=== PATIENT | female | born 1960 | race African-American/Black ===

== ENCOUNTER 2022-07-17 16:31 | Observation (INO) | payer OTHER ==
[2022-07-17 16:39] VITALS: BMI 39.0
[2022-07-17] MEDS ORDERED: ACETAMINOPHEN 325 MG TABLET (FP) PO ONE (17:13)
[2022-07-17] MEDS ORDERED: ACETAMINOPHEN 325 MG TABLET (FP) ONE (17:59)
[2022-07-17 18:29] LABS: VENOUS BASE EXCESS 4.9 mmol/L (-2-2); VENOUS O2 SATURATION 72.3 % (70-80); VENOUS PCO2 45.7 mmHg (38-52); VENOUS PH 7.434 (7.310-7.410)
[2022-07-17 18:30] LABS: BASO % 0.4 % (0-2.0); EOS % 0.1 % (0-4.5); HEMATOCRIT 36.1 % (32.4-45.2); HEMOGLOBIN 11.7 GM/dL (10.7-15.3); LYMPH % 31.1 % (8-40); MCH 26.4 pg (25.7-33.7); MCHC 32.5 g/dl (32.0-36.0); MEAN CELL VOLUME 81.1 fl (80-96); MEAN PLT VOLUME 7.6 fl (7.5-11.1); MONO % 12.6 % (3.8-10.2); NEUT % 55.8 % (42.8-82.8); PLATELET COUNT 402 10^3/uL (134-434); RBC 4.45 M/mm3 (3.60-5.2); RDW 15.6 % (11.6-15.6); WHITE BLOOD COUNT 6.6 K/mm3 (4.0-10.0)
[2022-07-17 18:37] LABS: INR 1.06 (0.83-1.09); PROTHROMBIN TIME (PATIENT) 12.3 SEC (9.7-13.0)
[2022-07-17 18:40] LABS: ACTIVATED PTT 32.2 SECONDS (25.2-36.5)
[2022-07-17 18:47] LABS: POTASSIUM 3.5 mmol/L (3.5-5.1)
[2022-07-17 18:51] LABS: ALBUMIN 3.4 g/dl (3.4-5.0); BLOOD UREA NITROGEN 15.7 mg/dL (7-18); CALCIUM 8.9 mg/dL (8.5-10.1); MAGNESIUM 2.2 mg/dL (1.8-2.4)
[2022-07-17 18:54] LABS: CREATININE 0.9 mg/dL (0.55-1.3)
[2022-07-17 18:56] LABS: BILIRUBIN,TOTAL 0.4 mg/dL (0.2-1); TOT PROT 7.7 g/dl (6.4-8.2)
[2022-07-17 18:59] LABS: N-TERMINAL BNP 33.5 pg/ml (5-125)
[2022-07-17] MEDS ORDERED: DEXAMETHASONE SOD PHOSPHATE 20 MG/5 ML VIAL IVPB ONE (21:26)
[2022-07-17] MEDS ORDERED: DEXAMETHASONE SOD PHOSPHATE 4 MG/1 ML VIAL ONE (22:02)
[2022-07-17] MEDS ORDERED: BENZONATATE 200 MG CAPSULE PO ONE (23:21)
[2022-07-18] MEDS ORDERED: ALBUTEROL SO4 HFA INHALER IH PRN (01:32)
[2022-07-18] MEDS ORDERED: NITROGLYCERIN SUBLINGUAL 1/150 0.4 MG TAB SL PRN (01:32)
[2022-07-18] MEDS: BUDESONIDE/FORMETEROL FUMARATE 80/4.5 mcg INHALER IH SCH ×2 (05:15→09:38)
[2022-07-18 08:20] LABS: HEMATOCRIT 36.1 % (32.4-45.2); HEMOGLOBIN 11.7 GM/dL (10.7-15.3); MCH 26.8 pg (25.7-33.7); MCHC 32.5 g/dl (32.0-36.0); MEAN CELL VOLUME 82.3 fl (80-96); MEAN PLT VOLUME 8.2 fl (7.5-11.1); PLATELET COUNT 418 10^3/uL (134-434); RBC 4.39 M/mm3 (3.60-5.2); RDW 15.9 % (11.6-15.6); WHITE BLOOD COUNT 6.4 K/mm3 (4.0-10.0)
[2022-07-18 08:38] LABS: POTASSIUM 3.7 mmol/L (3.5-5.1)
[2022-07-18 08:42] LABS: ALBUMIN 3.4 g/dl (3.4-5.0)
[2022-07-18 08:43] LABS: BLOOD UREA NITROGEN 18.6 mg/dL (7-18); CALCIUM 9.5 mg/dL (8.5-10.1); MAGNESIUM 2.3 mg/dL (1.8-2.4)
[2022-07-18 08:45] LABS: CREATININE 0.9 mg/dL (0.55-1.3); PHOSPHOROUS 3.4 mg/dL (2.5-4.9)
[2022-07-18 08:47] LABS: BILIRUBIN,TOTAL 0.4 mg/dL (0.2-1); TOT PROT 7.9 g/dl (6.4-8.2)
[2022-07-18] MEDS ORDERED: LISINOPRIL 20 MG TABLET PO SCH (10:00)
[2022-07-18] MEDS ORDERED: ESCITALOPRAM OXALATE 10 MG TABLET PO SCH (10:00)
[2022-07-18] MEDS ORDERED: ENOXAPARIN NA (PORCINE) 30 MG/0.3 ML DISP.SYRIN SQ SCH (10:00)
[2022-07-18] MEDS ORDERED: PATIENT'S OWN MEDICATION (NON-FORMULARY) (Lisinopril/Hydrochlorothiazide [Lisinopril-Hctz PO SCH (10:00)
[2022-07-18] MEDS ORDERED: HYDROCHLOROTHIAZIDE 25 MG TABLET (FP) PO SCH (10:00)
[2022-07-18] MEDS ORDERED: ENOXAPARIN NA (PORCINE) 40 MG/0.4 ML DISP.SYRIN SQ SCH (10:00)
[2022-07-18] MEDS ORDERED: TIOTROPIUM BROMIDE 2.5 MCG (SPIRIVA) RESPIMAT INHALER IH SCH (10:00)
[2022-07-18] MEDS ORDERED: ASPIRIN COATED 81 MG TABLET.EC PO SCH (10:00)
[2022-07-18] MEDS ORDERED: CLOPIDOGREL BISULFATE 75 MG TABLET (FP) PO SCH (10:00)
[2022-07-18] MEDS ORDERED: ISOSORBIDE MONONITRATE 30 MG TAB.SR.24H (FP) PO SCH (10:00)
[2022-07-18 10:46] VITALS: TEMP 98.4
[2022-07-18 15:01] VITALS: BP 149/78; PULSE 70; RESP 18
[2022-07-18] MEDS ORDERED: ATORVASTATIN CA 40 MG TABLET (FP) PO SCH (22:00)
== END 2022-07-18 16:06 | disposition home or self-care (01) ==
LOC: JER 16:31 → UNDOADMOB 19:12 → JERBED 19:12 → J4W 07-18 01:04 → OBSVTOIN 07-18 01:29 → INTOOBSV 07-18 01:29 → J4W 07-18 13:35 → JERBED 07-18 13:35
PROVIDERS: ADMIT Internal Medicine; ATTEND Internal Medicine
PROC: 3E033GC Introduction of Other Therapeutic Substance into Peripheral Vein, Percutaneous Approach (ICD-10-PCS; principal; 2022-07-18)
PROC: 3E013GC Introduction of Other Therapeutic Substance into Subcutaneous Tissue, Percutaneous Approach (ICD-10-PCS; 2022-07-18)
PROC: 3E0F7SF Introduction of Other Gas into Respiratory Tract, Via Natural or Artificial Opening (ICD-10-PCS; 2022-07-18)
DX: U07.1 COVID-19 (principal); I10 Essential (primary) hypertension; I25.10 Atherosclerotic heart disease of native coronary artery without angina pectoris; I25.2 Old myocardial infarction; E78.5 Hyperlipidemia, unspecified; J44.9 Chronic obstructive pulmonary disease, unspecified; R94.31 Abnormal electrocardiogram [ECG] [EKG]; D84.9 Immunodeficiency, unspecified; E66.9 Obesity, unspecified; Z68.39 Body mass index [BMI] 39.0-39.9, adult; Z95.5 Presence of coronary angioplasty implant and graft; Z87.891 Personal history of nicotine dependence
CPT/HCPCS: 0241U-QW; 26055; 36415; 71045-TC-FY; 71275-TC; 80053; 82803; 83735; 83880; 84100; 84484; 85025; 85027; 85610; 85730; 93005; 93010; 94640; 96372; 96374; 99285-25; G0378; Q9967